=== PATIENT | female | born 1960 | race Caucasian/White ===

== ENCOUNTER → 2016-10-11 | Outpatient (CLI) | payer OTHER ==
[~2016-10-11] VITALS: Ht 157.5 cm; Wt 76.7 kg
[~2016-10-11] MED LIST: PREMARIN 0.3MG0.3 MG PO; VENTOLIN HFA 1818 GM INH
--- NOTE | ~2016-10-11 | HPC ---
[facility] [place] [address] PAIN MANAGEMENT CONSULTATION Name: PHILLIP LERNER Room #: REG SIMON Bashir#: [id number] Admission: 10/11/16 Attend Phys: Dell Hays DO Discharge: Date of : 60 Report #: [id number] THIS REPORT FOR: //name// CC: Carmine Hays HISTORY OF PRESENT ILLNESS: The patient is a 56-year-old female seen in consultation at the request of Dr. Xie for assistance with management of chronic pain concerns. The patient tells me she has been taking hydrocodone 7.5/325 four a day for 5 years for diffuse axial back pain. She states Dr. Xie has not suggested any surgery. She states she had seen a chiropractor greater than a decade ago, has done some physical therapy over the past, and she claims to do some core exercises daily. She notes she has problems with "everything", noting sitting, standing, walking, vacuuming and sweeping, all exacerbate low back pain, right thigh, but primarily left leg with paresthesia into the calf and feet and episodic weakness in the left greater than right leg. She denies saddle anesthesia or bowel or bladder continence changes. She notes "rest in bed for a day or 2" is the only thing that makes her pain better along with chronic opiates. The patient states she has had "problems since she was a teenager" with her back. She denies any specific antecedent trauma and overuse. She describes pain as burning, shooting, aching, throbbing and tender, rates anywhere from 6-7 on a 0-10 visual analog scale. REVIEW OF SYSTEMS: Complete review of systems attached to chart and was gone over with the patient. SOCIAL HISTORY: She is . She has chronic smoking history greater than 30 years, currently smoke one half pack a day. Denies any significant alcohol use. MEDICATIONS: She uses an albuterol metered dose inhaler episodically though not on a regular basis. PAST MEDICAL HISTORY AND SURGICAL HISTORY: She states she has IBS and gastritis, but is on no medications for the same. Had a total abdominal hysterectomy with bilateral salpingo-oophorectomy in 1987 and does use Premarin presently. Other than the hysterectomy, she had tonsillectomy as a child. 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 Pain impact score averages about 6.2 for all indices queried. [address] [address] PAIN MANAGEMENT CONSULTATION Name: PHILLIP LERNER Room #: REG Cathleen Bashir#: [id number] Admission: 10/11/16 Attend Phys: Dell Hays DO Discharge: Date of : 60 Report #: [id number] PHYSICAL EXAMINATION: GENERAL: A 5 foot 2 inch and 162 pound female, BMI is 30.9 kg/m sq. Blood pressure 161/83, pulse 66, respirations are 18, and room air oxygen saturation 97%. NEUROLOGIC: Cranial nerves 2-12 are grossly intact. HEENT: Pupils equal and reactive to light and accommodation. Extraocular muscles are intact. There is no nystagmus, lateral gaze deviation. NECK: Cervical range of motion is full. Thyroid unremarkable. EXTREMITIES: Upper extremity strength is preserved. HEART: Regular rhythmical without murmur. LUNGS: Clear to auscultation. MUSCULOSKELETAL: The patient rises from the chair, has a shuffling gait, though it is tandem. She is able to walk on her toes and heels. When asked to bend at the waist, she is able to flex 45 degrees with subjective pain. However, in the exam room, I did see her bend easily 90 degrees to pickle sorter an object off the floor. She has subjective tenderness, L3 bilateral down to about S1 though no discrete trigger points are noted and no acute spasm is palpable in these muscle groups. Lower extremity strength is objectively 4/5 to all muscle groups tested. Patellar reflexes are symmetric, 2/4. Achilles reflexes are symmetric at 1-2/4. Straight leg raise is negative. Passive rotation of the hips does not exacerbate pain though flexion, abduction, external rotation of the right leg does exacerbate pain on the right side. When lying left lateral decubitus position, she has some subjective pain with palpation over the hip, though no pain over the SI joint. SKIN AND INTEGUMENTARY: Intact. DIAGNOSTIC STUDIES: MRI was reviewed, somewhat dated from 04/11/2013. Notes no acute abnormalities of the lumbar spine, no central stenosis noted in the lumbar spine. There are some subtle degenerative changes at L3-L4 without stenosis, moderate disk degeneration with facet arthropathy at L4-L5 with some mild foraminal stenosis greater on the left. There was moderate disk desiccation at L5-S1 with facet arthropathy. There was moderate right anterolateral recess and some right foraminal stenosis though this does not correlate with right S1 radicular findings on clinical exam. ASSESSMENT: Axial back pain in a patient with nicotine habituation, opiate habituation, moderate obesity with a BMI of 30.9 kg/m sq. and general deconditioning. RECOMMENDATIONS: 1. Agree with weaning opiate analgesics as chronic use of short-term opiates. They have really never been associated with improved function for subjective axial back pain. 2. Recommend smoking cessation as there is a large body of medical literature correlating nicotine use with axial back pain. 3. Recommend weight loss, increase range of motion, physical activity. [facility] [address] [place] [address] PAIN MANAGEMENT CONSULTATION Name: PHILLIP LERNER Room #: REG [facility] Krysten#: [id number] Admission: 10/11/16 Attend Phys: Dell Hays DO Discharge: Date of : 60 Report #: [id number] patient may benefit from a nonsteroidal anti-inflammatory medication, though she claims to have trialed Celebrex and meloxicam, all causing gastroesophageal reflux. She also states she has an allergy to "STEROIDS" (?). The patient was discharged in stable condition. No prescriptions were generated. No followup appointments were made. By: [id number] Dell Hays DO /nt
[2016-10-11 09:43] VITALS: BP 161/83
== END ==
LOC: PAIN 07:08
DX: G89.29 Other chronic pain (principal); E66.01 Morbid (severe) obesity due to excess calories; F17.210 Nicotine dependence, cigarettes, uncomplicated